=== PATIENT | male | born 1990 | race Caucasian/White ===

== ENCOUNTER 2017-10-12 21:53 | Emergency (ER) | payer SELFPAY ==
--- NOTE | 2017-10-12 22:04 | ER Report ---
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 Patient noted some edema of the left lower extremity which has been ongoing for some time. He complains of worsening pain after being exposed to the sun yesterday in [place] with worsening pain on ambulation and weightbearing. Patient is neurovascularly intact and denies any trauma. Denies chest pain, shortness breath, fevers or chills, nausea, vomiting, hematuria or dark urine. REVIEW OF SYSTEMS: Constitutional: No fever, no chills. Eyes: No discharge. ENT: No sore throat. Cardiovascular: No chest pain, no palpitations. Respiratory: No cough, no shortness of breath. Gastrointestinal: No abdominal pain, no vomiting. Genitourinary: No hematuria. Musculoskeletal: Bilateral lower extremity pain with left lower extremity edema in the distal ankle Skin: Bilateral diffuse erythema on the ventral aspect of the lower extremities bilaterally Neurological: No headache, no focal neurological deficits on exam Allergies: Coded Allergies: Penicillins (Verified Allergy, Unknown, 10/12/17) Home Meds Active Scripts Tramadol Hcl (TRAMADOL HCL) 50 Mg Tablet, 50 MG PO Q6H Y for PAIN, #12 TAB 0 Refills Prov:HANK SEN DO 10/13/17 Naproxen Sodium (ALEVE) 220 Mg Capsule, 440 MG PO TID for 7 Days, #42 CAPSULE Prov:HANK SEN DO 10/13/17 Prednisone (PREDNISONE) 20 Mg Tablet, 40 MG PO QDAY for 4 Days, #8 TAB Prov:HANK SEN DO 10/13/17 Constitutional Vital Sign - Last 24 Hours 10/12/17 10/12/17 10/12/17 10/12/17 21:57 21:59 22:00 22:05 Temp 98.5 Pulse 75 Resp 16 B/P (MAP) 153/95 (114) 153/95 139/89 (106) Pulse Ox 97 97 O2 Delivery Room Air 10/12/17 10/12/17 10/12/17 10/12/17 23:03 23:08 23:23 23:30 Pulse 76 ??? B/P (MAP) 138/103 (115) 126/71 (89) Pulse Ox 96 94 10/12/17 10/12/17 10/13/17 10/13/17 23:38 23:53 00:00 00:08 Pulse 73 74 74 B/P (MAP) 123/68 (86) Pulse Ox 94 90 89 10/13/17 00:30 B/P (MAP) 116/66 (83) Physical Exam General Appearance: The patient is alert, has no immediate need for airway protection and no signs of toxicity. No acute distress Eyes: Pupils equal and round no pallor or injection. ENT, Mouth: Mucous membranes are moist. Respiratory: There are no retractions, lungs are clear to auscultation. Cardiovascular: Regular rate and rhythm. Gastrointestinal: Abdomen is soft and non tender, no masses, bowel sounds normal. Neurological: No focal neurological deficits Skin: + diffuse erythema of ventral aspects of LE b/l Musculoskeletal: Neck is supple non tender. Extremities are tender b/l, swollen in the LLE > RLE and have full range of motion. DIFFERENTIAL DIAGNOSIS: After history and physical exam differential diagnosis was considered for sun poisoning, partial-thickness burn, trauma, musculoskeletal pain. Medical Decision Making ED Course/Re-evaluation ED Course Patient is a 27-year-old male here with complaints of bilateral lower extremity sunburn which he obtained yesterday while outside in [place]. Patient is a ice cream truck driver and complains now of left lower extremity swelling in the absence of trauma or prior history of clots or chest pain or shortness of breath. He has attempted to use aloe vera without significant relief. Tetanus was offered for update immunization however patient declined. Patient was given prednisone, Toradol, fluids. Patient was given scripts for naproxen, prednisone , recommend ICE, elevation, NSAIDS and follow up with PCP. Patient voiced understanding of plan. Decision to Disposition Date: Oct 13, 2017 Decision to Disposition Time: 00:13 Depart Departure Latest Vital Signs Vital Signs Date Time Temp Pulse Resp B/P (MAP) Pulse Ox O2 Delivery O2 Flow Rate FiO2 10/13/17 00:30 116/66 (83) 10/13/17 00:08 74 89 10/12/17 21:59 98.5 16 Room Air Impression: Primary Impression: Sunburn Condition: Improved Disposition: HOME OR SELF-CARE New Scripts Tramadol Hcl (TRAMADOL HCL) 50 Mg Tablet 50 MG PO Q6H Y for PAIN, #12 TAB 0 Refills Prov: HANK SEN DO 10/13/17 Naproxen Sodium (ALEVE) 220 Mg Capsule 440 MG PO TID for 7 Days, #42 CAPSULE Prov: HANK SEN DO 10/13/17 Prednisone (PREDNISONE) 20 Mg Tablet 40 MG PO QDAY for 4 Days, #8 TAB Prov: HANK SEN DO 10/13/17 Patient Instructions: Naproxen (By mouth), Prednisone (By mouth), Sunburn (ED) , Tramadol (By mouth) Additional Instructions: Please take 40 mg of prednisone daily for 4 days. You may take naproxen 440 mg 3 times a day as needed for pain and swelling. You may take tramadol 1 tablet every 6-8 hours as needed for breakthrough pain, do not drive or operate heavy machinery while on this medication. Please return promptly should develop worsening pain, fevers, chest pain or shortness of breath HANK SEN DO Oct 12, 2017 22:03
[2017-10-12] MEDS ORDERED: NS(*) 0.9% 1000 ML BAG 1,000 ML IV ONE (22:15)
[2017-10-12] MEDS ORDERED: DIPHTH/TETANUS/ACEL. PERTUSSIS IM ONLY ONE (22:15)
[2017-10-12] MEDS ORDERED: predniSONE 20 MG TAB PO ONE (22:15)
[2017-10-12] MEDS ORDERED: KETOROLAC 30 MG/ML VIAL IVP ONE (22:15)
[2017-10-13] MEDS ORDERED: TRAM-420 PO ×2 (00:19→00:22)
[2017-10-13] MEDS ORDERED: PRED20TA6 PO (00:19)
[2017-10-13] MEDS ORDERED: NAPR220C12 PO (00:19)
[2017-10-13] MEDS ORDERED: traMADol 50 MG TAB TH 2 TAB/BOTTLE PO ONE (00:20)
[2017-10-13 00:30] VITALS: BP 116/66
== END 2017-10-13 00:53 | disposition home or self-care (01) ==
LOC: ER 22:16
DX: L55.9 Sunburn, unspecified (principal)
CPT/HCPCS: 96360; 96361; 96374; 99283; C9399; J1885; J7030; J7512